=== PATIENT | male | born 1950 | race Caucasian/White ===

== ENCOUNTER → 2024-12-03 | Day surgery (SDC) | payer BC ==
[2024-11-27 16:37] LABS: BASOPHILS # (AUTO) 0.1 (0.0-0.1); BASOPHILS % 1.3 % (0.0-1.0); EOSINOPHILS # (AUTO) 0.2 (0.0-0.4); EOSINOPHILS % 2.1 % (0.0-6.0); HEMATOCRIT 44.4 % (38.2-49.6); HEMOGLOBIN 15.1 g/dL (14.0-18.0); LYMPHOCYTES # (AUTO) 2.5 (1.0-3.2); LYMPHOCYTES % 32.7 % (18.0-39.1); MEAN CORPUSCULAR HEMOGLOBIN 30.6 pg (28-32); MEAN CORPUSCULAR VOLUME 90.1 fL (81-99); MONOCYTES # (AUTO) 0.8 (0.2-0.8); MONOCYTES % 10.6 % (4.4-11.3); PLATELET COUNT 199 x10e3/uL (140-360); RED BLOOD COUNT 4.93 x10e6/uL (4.3-5.7); RED CELL DISTRIBUTION WIDTH 13.1 % (11.7-14.4); WHITE BLOOD COUNT 7.58 x10e3/uL (4.8-10.8)
[~2024-12-03] MED LIST: ACETAMINOPHEN 1000 MG/100 ML 100 ML IV ONE; CAYENNE450 MG PO; EPHEDRINE SULFATE INJ 50 MG/ML VIAL ONE; FENTANYL CITRATE/PF 100MCG/2 ML INJ ONE; LIDOCAINE HCL 2% LOCAL INJ 5 ML SDV VIAL INJ ONE; ONDANSETRON HCL INJ 2MG/ML 2ML 2 MG/ML VIAL ONE; PROPOFOL IV EMULSION 10 MG/ML 20 ML VIAL ONE
[2024-12-03] MEDS: LACTATED RINGER'S 1,000 ML ONE (08:31)
[2024-12-03 11:33] VITALS: TEMP 97
[2024-12-03 12:45] VITALS: BP 120/71; PULSE 70; RESP 16; O2SAT 94
== END | disposition home or self-care (01) ==
LOC: OR 07:50
PROVIDERS: ATTEND Specialist
DX: G56.21 Lesion of ulnar nerve, right upper limb (principal); I10 Essential (primary) hypertension; Z01.810 Encounter for preprocedural cardiovascular examination; Z01.812 Encounter for preprocedural laboratory examination; Z01.818 Encounter for other preprocedural examination
CPT/HCPCS: 36415; 64718; 71046; 85025; 93005; J0131; J0690; J2003; J2405; J2704; J3010; J7121

== ENCOUNTER → 2024-12-23 | Day surgery (SDC) | payer BC ==
[~2024-12-23] MED LIST changes: -ACETAMINOPHEN 1000 MG/100 ML 100 ML IV ONE; +DEXAMETHASONE SOD PHOS INJ 4 MG/ML SDV ONE; +MIDAZOLAM HCL 2 MG/2 ML VIAL ONE
[2024-12-23] MEDS: LACTATED RINGER'S 1,000 ML ONE (05:52)
[2024-12-23 07:49] VITALS: TEMP 98.4
[2024-12-23 09:45] VITALS: BP 135/86; PULSE 65; RESP 16; O2SAT 98
== END | disposition home or self-care (01) ==
LOC: OR 05:20
PROVIDERS: ATTEND Specialist
DX: G56.22 Lesion of ulnar nerve, left upper limb (principal); I10 Essential (primary) hypertension; Z87.891 Personal history of nicotine dependence
CPT/HCPCS: 28035; J0690; J1100; J2003; J2250; J2405; J2704; J3010; J7121